=== PATIENT | male | born 2000 | race Two or more races ===

== ENCOUNTER 2020-12-09 00:57 | Emergency (ER) | payer OTHER ==
[~2020-12-09] VITALS: Ht 167.6 cm; Wt 68.0 kg
[2020-12-09 01:42] VITALS: BP 97/60
== END 2020-12-09 02:11 | disposition left against medical advice (07) ==
LOC: EDBD 00:57 → ER 00:57
DX: F10.129 Alcohol abuse with intoxication, unspecified (principal); Y90.9 Presence of alcohol in blood, level not specified; Z53.29 Procedure and treatment not carried out because of patient's decision for other reasons